=== PATIENT | female | born 2000 | race Two or more races ===

== ENCOUNTER 2020-09-16 21:02 | Emergency (ER) | payer OTHER ==
[~2020-09-16] VITALS: Ht 160 cm; Wt 99.8 kg
[2020-09-16] MEDS ORDERED: PRENATABS RX T1 EACH PO (21:11)
== END 2020-09-16 23:14 | disposition home or self-care (01) ==
LOC: ER 21:02
DX: O26.891 Other specified pregnancy related conditions, first trimester (principal); R10.2 Pelvic and perineal pain; Z34.01 Encounter for supervision of normal first pregnancy, first trimester